=== PATIENT | female | born 1990 | race Asian ===

== ENCOUNTER 2019-11-06 13:16 | Emergency (ER) | payer MEDICAID ==
[~2019-11-06] VITALS: Ht 172.7 cm; Wt 113.4 kg
[2019-11-06 13:31] VITALS: Ht 172.7 cm; Wt 113.4 kg
[2019-11-06 14:27] LABS: UA SPECIFIC GRAVITY 1.015 (1.005-1.035); microscopic required? YES; urine erythrocyte 3+ (NEGATIVE)
[2019-11-06 14:40] LABS: CALCIUM 8.3 mg/dL (8.5-10.1); CARBON DIOXIDE 27.4 mmol/L (21-32); CHLORIDE SERUM 103 mmol/L (98-107); CREATININE SERUM 0.8 mg/dL (0.6-1.0); GFR1 > 60 mL/min; GLUCOSE SERUM 105 mg/dL (74-106); POTASSIUM SERUM 3.3 mmol/L (3.5-5.1); SODIUM SERUM 139 mmol/L (136-145)
[2019-11-06 14:44] LABS: BASOPHIL % 0.1 % (0-2); PLATELET COUNT 141 x10^3mcL (130-400); RED CELL DISTRIBUTION WIDTH 14.2 % (11.5-14.5)
[2019-11-06 16:24] VITALS: BP 124/72
== END 2019-11-06 16:24 | disposition home or self-care (01) ==
LOC: ED 13:16
PROVIDERS: Emergency Medicine
DX: N39.0 Urinary tract infection, site not specified (principal); Z98.890 Other specified postprocedural states; Z88.6 Allergy status to analgesic agent
CPT/HCPCS: 36415; J1885; J2001

== ENCOUNTER 2020-02-05 13:16 | Emergency (ER) | payer MEDICAID ==
[~2020-02-05] VITALS: Ht 172.7 cm; Wt 107.0 kg
[2020-02-05 13:32] VITALS: BP 140/92
[2020-02-05 14:30] LABS: microscopic required? YES; urine erythrocyte TRACE (NEGATIVE)
== END 2020-02-05 15:32 | disposition home or self-care (01) ==
LOC: ED 13:16
DX: H92.01 Otalgia, right ear (principal); R11.0 Nausea; R19.7 Diarrhea, unspecified; Z88.6 Allergy status to analgesic agent